=== PATIENT | female | born 1980 | race Two or more races ===

== ENCOUNTER 2021-10-01 12:05 | Emergency (ER) | payer SELFPAY ==
[~2021-10-01] VITALS: Ht 157.5 cm; Wt 73.6 kg
[2021-10-01] MEDS ORDERED: IV NORMAL SALINE 1000ML BAG 1,000 ML IV ONE (12:45)
[2021-10-01] MEDS ORDERED: KETOROLAC 15 MG/ML VIAL. IVP ONE (12:45)
[2021-10-01 13:48] LABS: BILIRUBIN,URINE NEGATIVE (NEG); CLARITY,URINE CLEAR; COLOR,URINE STRAW; NITRITE,URINE NEGATIVE (NEG); PH,URINE 6.5 (<5.0-8.0); PROTEIN,URINE NEGATIVE (NEG-TRACE); UROBILINOGEN,URINE 0.2 mg/dL (0.2 mg/dL)
[2021-10-01 13:51] LABS: BACTERIA,URINE 0 /HPF (0-FEW)
--- NOTE | 2021-10-01 14:32 | PHYS DOC ---
Past Medical History Past Medical History: No Pertinent History Past Surgical History: No Surgical History, Tubal ligation Smoking Status: Never Smoker Alcohol Use: None General Adult EDM: Chief Complaint: VAGINAL PROBLEM HPI: HPI: Patient is a 41-year-old female that presents today with a bump on her labia. Patient is Moh[place]-speaking and does have an vending machine attendant at the bedside, according to the patient's she started noticing a bump along her right labial area a couple of days ago and is progressively gotten bigger and more sensitive when sitting and walking. Patient denies fever and chills, she is having some painful urination and some white discharge. Review of Systems: Review of Systems: Constitutional: Denies fever or chills. [] Eyes: Denies change in visual acuity. [] HENT: Denies nasal congestion or sore throat. [] Respiratory: Denies cough or shortness of breath. [] Cardiovascular: Denies chest pain or edema. [] GI: Denies abdominal pain, nausea, vomiting, bloody stools or diarrhea. [] /BURNISHER: Right labial bump, vaginal discharge, and dysuria. [] Musculoskeletal: Denies back pain or joint pain. [] Integument: Denies rash. [] Neurologic: Denies headache, focal weakness or sensory changes. [] Endocrine: Denies polyuria or polydipsia. [] Lymphatic: Denies swollen glands. [] Psychiatric: Denies depression or anxiety. [] Heart Score: C/O Chest Pain: No Risk Factors: Risk Factors: DM, Current or recent (<one month) smoker, HTN, HLP, family history of CAD, obesity. Risk Scores: Score 0 - 3: 2.5% MACE over next 6 weeks - Discharge Home Score 4 - 6: 20.3% MACE over next 6 weeks - Admit for Clinical Observation Score 7 - 10: 72.7% MACE over next 6 weeks - Early Invasive Strategies Current Medications: Current Medications Medications (Trade) Dose Ordered Sig/Thalia Start Time Stop Time Status Last Admin Dose Admin Ketorolac Tromethamine (Toradol 15mg Vial) 15 mg 1X ONCE 10/01/21 12:45 10/01/21 13:10 DC Sodium Chloride 1,000 ml @ 1,000 mls/hr 1X ONCE 10/01/21 12:45 10/01/21 13:10 DC Allergies: Allergies: Allergies Coded Allergies Type Severity Reaction Last Updated Verified No Known Drug Allergies 10/01/21 No Physical Exam: PE: Constitutional: Well developed, well nourished, no acute distress, non-toxic appearance. [] HENT: Normocephalic, atraumatic, bilateral external ears normal, oropharynx moist, no oral exudates, nose normal. [] Eyes: PERRLA, EOMI, conjunctiva normal, no discharge. [] Neck: Normal range of motion, no tenderness, supple, no stridor. [] Cardiovascular:Heart rate regular rhythm, no murmur [] Lungs & Thorax: Bilateral breath sounds clear to auscultation [] Abdomen: Bowel sounds normal, soft, no tenderness, no masses, no pulsatile masses. [] Skin: Warm, dry, no erythema, no rash. [] Back: No tenderness, no CVA tenderness. [] Extremities: No tenderness, no cyanosis, no clubbing, ROM intact, no edema. [] Neurologic: Alert and oriented X 3, normal motor function, normal sensory function, no focal deficits noted. [] Psychologic: Affect normal, judgement normal, mood normal. [] Female BURNISHER exam: Noticeable cyst along the 8:00 region of the labia in the periarea, no redness erythema noted no drainage noted, white vaginal discharge is noted no foul odor, Current Patient Data: Labs: Laboratory Tests Test 10/01/21 12:17 10/01/21 12:20 Urine Collection Type Unknown Urine Color Straw Urine Clarity Clear Urine pH 6.5 (<5.0-8.0) Urine Specific [place] 1.010 (1.000-1.030) Urine Protein Negative mg/dL (NEG-TRACE) Urine Glucose (UA) Negative mg/dL (NEG) Urine Ketones (Stick) Negative mg/dL (NEG) Urine Blood Moderate (NEG) Urine Nitrite Negative (NEG) Urine Bilirubin Negative (NEG) Urine Urobilinogen Dipstick 0.2 mg/dL (0.2 mg/dL) Urine Leukocyte Esterase Negative (NEG) Urine RBC 3-5 /HPF (0-2) Urine WBC 1-4 /HPF (0-4) Urine Squamous Epithelial Cells Mod /LPF Urine Bacteria 0 /HPF (0-FEW) Urine Mucus Slight /LPF POC Urine HCG, Qualitative Hcg negative (Negative) Vital Signs: Vital Signs Date Time Temp Pulse Resp B/P (MAP) Pulse Ox O2 Delivery O2 Flow Rate FiO2 10/01/21 12:07 98.8 18 16 168/87 (114) 99 Room Air 98.8 EKG: EKG: [] Radiology/Procedures: Radiology/Procedures: [] Course & Med Decision Making: Course & Med Decision Making Pertinent Labs and Imaging studies reviewed. (See chart for details) [id number] Marx from the [facility], he recommended placing the patient on Bactrim DS, and having the patient follow-up in 48 hours in the [facility] office for further management of this cyst. Spoke to patient and she is agreeable with the plan of care following up on an outpatient with Dr. Marx for further management of this. Heart rate currently is 74 Dragon Disclaimer: Dragon Disclaimer: This electronic medical record was generated, in whole or in part, using a voice recognition dictation system. Departure Departure Impression: Primary Impression: Bartholin gland cyst Additional Impression: UTI (urinary tract infection) Qualified Codes: N30.01 - Acute cystitis with hematuria Disposition: HOME / SELF CARE / HOMELESS Condition: STABLE Referrals: ALFONSO MARX MD Patient Instructions: Bartholin's Cyst or Abscess, Urinary Tract Infection Additional Instructions: Bactrim DS take 1 tablet twice daily for 7 full days Soak in a sitz bath 3-4 times daily to help with localized pain relief Wear nonconstricting clothing Tylenol and/or ibuprofen as needed for pain Follow-up with Dr. Marx for further management of this cyst. Scripts Sulfamethoxazole/Trimethoprim (BACTRIM DS TABLET) 1 Each Tablet 1 TAB PO BID for 10 Days, #20 TAB 0 Refills Prov: LAURIE ROQUE CONSERVATION EDUCATOR 10/01/21 LAURIE ROQUE CONSERVATION EDUCATOR Oct 01, 2021 14:32
[2021-10-01] MEDS ORDERED: SULF1TAB24 PO (14:37)
[2021-10-01 14:50] VITALS: BP 142/79
== END 2021-10-01 14:54 | disposition home or self-care (01) ==
LOC: ER 12:05
DX: N30.01 Acute cystitis with hematuria (principal); N75.0 Cyst of Bartholin's gland
CPT/HCPCS: 81001; 81025; 99285-25